=== PATIENT | male | born 1965 | race Caucasian/White ===

== ENCOUNTER 2018-04-11 09:19 | Emergency (ER) | payer OTHER ==
--- NOTE | 2018-04-11 10:18 | EDPHY ---
H & P Stated Complaint: syncopal episode 2am , cp now Time Seen by Provider: 04/11/18 09:47 HPI/ROS: CHIEF COMPLAINT: Syncope, chest pain HISTORY OF PRESENT ILLNESS: 52-year-old male presents with chest pain. Last night at 2:00 a.m., he got out of bed to urinate. He sat on the toilet to urinate and felt dizzy. He then stood up, started walking and had a syncopal episode. He struck his face on boxes of toys. He was unable to sleep the remainder of the night b/c of concern about fall/syncope. This morning he has a vague sensation of left chest discomfort, mild. No alleviating or aggravating factors. No associated shortness of breath. No change with exertion. History of the ascending aortic dilation, previously monitored by CT scan yearly, has not had a CT scan in several years. REVIEW OF SYSTEMS: complete 10 point ROS reviewed and is negative except for the noted elements in the HPI - Personal History Current Tetanus/Diphtheria Vaccine: Unsure Current Tetanus Diphtheria and Acellular Pertussis (TDAP): Unsure - Medical/Surgical History Hx Asthma: No Hx Chronic Respiratory Disease: No Hx Diabetes: No Hx Cardiac Disease: No Hx Renal Disease: No Hx Cirrhosis: No Hx Alcoholism: No Hx HIV/AIDS: No Hx Splenectomy or Spleen Trauma: No Other PMH: ENLARGED ASCENDING AORTA. REMOVAL SKIN CA'S. TONSILS. anxiety - Social History Smoking Status: Never smoked - Physical Exam Exam: General Appearance: Alert, pleasant Eyes: Pupils equal and round, no conjunctival pallor or injection ENT, Mouth: Ecchymosis left zygoma area without bony tenderness, abrasion on nose, no dental injury Neck: Normal inspection, no tenderness, range of motion without pain Respiratory: Lungs are clear to auscultation Cardiovascular: Regular rate and rhythm, no murmur Gastrointestinal: Abdomen is soft and nontender Neurological: A&O, nonfocal, normal gait Skin: Warm and dry, no rash Extremities: Nontender, no pedal edema Psychiatric: Mood and affect normal Constitutional: Initial Vital Signs Temperature (C) 36.8 C 04/11/18 09:38 Heart Rate 71 04/11/18 09:38 Respiratory Rate 18 04/11/18 09:38 Blood Pressure 140/98 H 04/11/18 09:38 O2 Sat (%) 97 02/28/19 09:38 O2 Delivery Mode Room Air Allergies/Adverse Reactions: No Known Allergies Allergy (Verified 04/11/18 09:37) Home Medications: Medication Instructions Recorded Multivitamin 04/11/18 Medical Decision Making - Diagnostics EKG Interpretation: EKG interpreted by me reveals normal sinus rhythm, rate 63, poor R-wave progression, no ST or T segment changes. Interpretation: Abnormal EKG Imaging Results: Chest X-Ray 04/11/18 09:37 Impression: New basilar interstitial disease, likely nonacute. Otherwise negative. Chest/Thorax CTA 04/11/18 10:18 Impression: 1. Minimal increase in dilatation of the aorta at the sinus of Valsalva, measuring 4.7 cm, tapering to normal caliber in the ascending aorta, without dissection. 2. 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 3. Additional findings as above. Findings discussed with Dr. Mariaelena Mckoy on April 11, 2018 at 1128 hours. Imaging: Discussed imaging studies w/ inbound call center agent Radiologist, I viewed and interpreted images myself ED Course/Re-evaluation: This pt presents with syncope last night and vague/mild cp today. h/o ascending aortic dilation, 4.5cm, without recent f/u CT scan. Concern regarding increasing dilation, pt stable, doubt rupture. Will need CTA to evaluate. stat EKG: no ischemia or dysrhythmia. initial troponin normal. Sx unlikely ACS , with initial sx syncope last night (prolonged time, normal EKG, troponin). Heart score 1 (for age). Other considerations: musculoskeletal cp secondary to fall last elsa, PE, PTX, pnemonia, vasovagal episode. CTA results: 4.7cm aortic dilation, d/w pt, slight interval increase in size. Pt will f/u with his CV surgeon for continued monitoring. Shared decision- making for cp eval, low risk MACE, pt declines admission, will f/u. Most likely vasovagal episode after micturition, with chest wall pain related to fall. Warning signs discussed. Differential Diagnosis: Differential diagnosis includes though it is not limited to pneumonia, pneumothorax, pulmonary embolism, aortic dissection, pericarditis, acute coronary syndrome. - Data Points Laboratory Results: Laboratory Results 04/11/18 10:24 04/11/18 09:37 Point of Care Test Results: Chemistry 04/11/18 04/11/18 10:28 10:27 POC Sodium 141 mEq/L mEq/L (135-145) POC Potassium 3.9 mEq/L mEq/L (3.3-5.0) POC Chloride 102 mEq/L mEq/L (97-110) POC Total CO2 27 mEq/L mEq/L (22-31) POC BUN 11 mg/dL mg/dL (7-23) POC Creatinine 0.7 mg/dL mg/dL (0.7-1.3) POC Glucose 98 mg/dL mg/dL (70-100) POC Troponin I 0.01 ng/mL ng/mL (0.00-0.08) ISTAT H&H 04/11/18 10:27 POC Hgb 15.0 gm/dL gm/dL (13.7-17.5) POC Hct 44 % % (40-51) Departure - Departure Disposition: Home, Routine, Self-Care Clinical Impression: Syncope Qualifiers: Syncope type: vasovagal syncope Qualified Code(s): R55 - Syncope and collapse Chest pain Qualifiers: Chest pain type: unspecified Qualified Code(s): R07.9 - Chest pain, unspecified Condition: Good Instructions: Chest Pain (ED), Syncope (ED) Additional Instructions: Your aorta is 4.7cm in diameter today. This is slightly increased from your prior CT (4.5cm). Follow-up with your physician regarding this finding and continue to monitor the aorta. Referrals: José Miguel Paulson, DO [Primary Care Provider] - As per Instructions
[2018-04-11 10:32] LABS: PLATELET COUNT 261 10^3/uL (150-400)
[2018-04-11] MEDS ORDERED: IOPAMIDOL (ISOVUE 370) 100 ML BTL IV ONE (10:38)
[2018-04-11 12:11] VITALS: BP 139/85
--- NOTE | 2018-04-11 15:20 | CPEKG ---
Test Reason : OPEN Blood Pressure : / mmHG Vent. Rate : 063 BPM Atrial Rate : 064 BPM P-R Int : 155 ms QRS Dur : 107 ms QT Int : 424 ms P-R-T Axes : 019 055 050 degrees QTc Int : 435 ms Sinus rhythm Anteroseptal infarct, age indeterminate Confirmed by Mariaelena Mckoy ([id number]) on 04/11/2018 3:20:28 PM Referred By: Mariaelena Mckoy Confirmed By:Mariaelena Mckoy
== END 2018-04-11 12:11 | disposition home or self-care (01) ==
DX: R55 Syncope and collapse (principal); R07.9 Chest pain, unspecified; I77.810 Thoracic aortic ectasia
CPT/HCPCS: 82435-PO; 82565-PO; 82947-PO; 84132-PO; 84295-PO; 84484-ER; 84520-PO; 85014-ER; Q9967

== ENCOUNTER 2018-07-17 17:32 | Emergency (ER) | payer OTHER | END 2018-07-17 20:54 | disposition home or self-care (01) | LOC: CED 17:32 ==